=== PATIENT | female | born 1975 | race Asian ===

== ENCOUNTER 2019-09-27 17:12 | Emergency (ER) | payer OTHER ==
--- OUTSIDE RECORDS SUMMARY | 2019-09-27 17:21 | XMS REPORT | Continuity of Care Document ---
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 Problems Description No Information Available Social History Type Date Description Comments Sex Unknown ETOH Use Occasionally consumes alcohol Tobacco Use Start: Unknown Patient has never smoked Smoking Status Reviewed: 09/26/19 Patient has never smoked Allergies, Adverse Reactions, Alerts Description No Known Drug Allergies Medications Description No Active Medications Immunizations Description No Information Available Vital Signs Date Vital Result Comment 06/26/2019 8:14am Intraocular Pressure Right Eye 16 mmHg Intraocular Pressure Left Eye 16 mmHg 09/26/2018 8:43am Intraocular Pressure Right Eye 15 mmHg Intraocular Pressure Left Eye 15 mmHg Results Description No Information Available Procedures Date Code Description Status 09/26/2019 82933 Refraction Completed 09/26/2019 08961 Eye Exam Est Intermediate Completed 06/26/2019 38734 Refraction Completed Medical Devices Description No Information Available Encounters Type Date Location Provider Dx Diagnosis Office Visit 06/26/2019 Main Office Kavin Bartlett, OD H16.223 Keratoconjunct sicca, 8:00a not specified as Sjogren's, bilateral H52.11 Myopia, right eye Assessments Date Code Description Provider 09/26/2019 H52.11 Myopia, right eye Kavin Bartlett, OD 09/26/2019 H16.223 Keratoconjunctivitis sicca, not specified as Kavin Bartlett, OD Sjogren's, bilateral 06/26/2019 H16.223 Keratoconjunctivitis sicca, not specified as Kavin Bartlett, OD Sjogren's, bilateral 06/26/2019 H52.11 Myopia, right eye Kavin Bartlett, OD Plan of Treatment 09/26/2019 - Kavin Bartlett, ODH52.11 Myopia, right eyeH16.223 Keratoconjunctivitis sicca, not specified as Sjogren's, bilateralFollow up: yearly full, sooner PRN Functional Status Description No Information Available Mental Status Description No Information Available Referrals Description No Information Available
[2019-09-27 18:02] VITALS: BP 126/83
--- NOTE | 2019-09-27 18:26 | UC ---
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 - History of Current Complaint Chief Complaint: UCLowerExtremity Stated Complaint: ANKLE PAIN Time Seen by Provider: 09/27/19 18:17 Hx Obtained From: Patient Hx Last Menstrual Period: 09/27/19 ?: No Onset/Duration: Sudden Onset, Lasting Days - 1 Pain Intensity: 7 Pain Scale Used: 0-10 Numeric Aggravating Factor(s): Standing, Ambulation Alleviating Factor(s): Rest, Elevation Able to Bear Weight: Yes - Allergies/Home Medications Allergies/Adverse Reactions: Allergies Allergy/AdvReac Type Severity Reaction Status Date / Time No Known Allergies Allergy Verified 09/27/19 18:01 Home Medications: Home Medications NK [No Home Medications Reported] 09/27/19 [History Confirmed 09/27/19] PMH/Surg Hx/FS Hx/Imm Hx Previously Healthy: Yes - Surgical History Surgical History: None Surgery Procedure, Year, and Place: 1 c section - Family History Known Family History: Positive: None - Social History Occupation: Works From/At Home Lives: With Family Alcohol Use: Occasionally Substance Use Type: None Smoking Status (MU): Never Smoked Tobacco Review of Systems All Other Systems Reviewed And Are Negative: Yes Constitutional: Positive: Negative Skin: Positive: Negative Eyes: Positive: Negative ENT: Positive: Negative Respiratory: Positive: Negative Cardiovascular: Positive: Negative Gastrointestinal: Positive: Negative Genitourinary: Positive: Negative Motor: Positive: Negative Neurovascular: Positive: Negative Musculoskeletal: Positive: Other: - left achellies tendon pain tendon intact full rom withour droop of foot Neurological: Positive: Negative Psychological: Positive: Negative Is Patient Immunocompromised?: No Physical Exam Triage Information Reviewed: Yes Appearance: Well-Appearing, No Pain Distress, Well-Nourished Vital Signs: Initial Vital Signs Temp 100.6 F 09/27/19 17:56 Pulse 70 09/27/19 17:56 Resp 14 09/27/19 17:56 BP 126/83 09/27/19 17:56 Pulse Ox 100 09/27/19 17:56 Vital Signs Reviewed: Yes Eye Exam: Normal Eyes: Positive: Conjunctiva Clear ENT Exam: Normal ENT: Positive: Normal ENT inspection, Hearing grossly normal. Negative: Nasal congestion, Trismus, Muffled voice, Hoarse voice, Dental tenderness, Sinus tenderness Dental Exam: Normal Neck exam: Normal Neck: Positive: Supple, Nontender Respiratory Exam: Normal Respiratory: Positive: Chest non-tender, No respiratory distress, No accessory muscle use Cardiovascular Exam: Normal Cardiovascular: Positive: RRR, Pulses Normal, Brisk Capillary Refill Musculoskeletal Exam: Normal Musculoskeletal: Positive: Strength Intact, ROM Intact, No Edema Neurological Exam: Normal Neurological: Positive: Alert, Muscle Tone Normal Psychological Exam: Normal Skin Exam: Normal Lower Extremity Course/Dx - Course Course Of Treatment: hasmukh pacheco, follow with sports medicine this week - Differential Dx/Diagnosis Provider Diagnosis: Achilles tendinitis of left lower extremity Discharge ED - Sign-Out/Discharge Documenting (check all that apply): Patient Departure All imaging exams completed and their final reports reviewed: No Studies - Discharge Plan Condition: Stable Disposition: HOME Patient Education Materials: Ibuprofen (By mouth), Achilles Tendinitis (ED), R.I.C.E. Treatment (ED) Referrals: Himanshu Adams MD [Medical Doctor] - 2 Days - Billing Disposition and Condition Condition: STABLE Disposition: Home
== END 2019-09-27 18:54 | disposition home or self-care (01) ==
LOC: UCEAST 17:12
DX: M76.62 Achilles tendinitis, left leg (principal)
CPT/HCPCS: 99211; G0463